=== PATIENT | male | born 1975 | race Caucasian/White ===

== ENCOUNTER → 2020-08-08 | Outpatient (CLI) | payer OTHER ==
[~2020-08-08] MED LIST: GADOTERATE 5 MMOL/10ML VIAL. INT ART ONE; IOHEXOL 300 MG/ML 50 ML VIAL. INT ART ONE; LIDOCAINE 1% Multi-Dose 20 ML VIAL. ID ONE
--- NOTE | 2020-08-08 16:12 | KCIC ---
Study: Fluoroscopically guided arthrogram of the left shoulder joint for MRI Indication: Left labral tear. Shoulder pain. Contrast: 0.1 cc Clariscan; 2 cc Omnipaque 300 Technique: A timeout was performed prior to beginning the procedure in order to confirm patient identity and lat erality of the injection. The risks, benefits and alternatives of the procedure were discussed. Utilizing sterile technique, fluoroscopic guidance and local anesthesia with 1% lidocaine, the left s houlder joint was accessed utilizing a 22-gauge, 3.5" spinal needle. Confirmation of needle position was obtained with a small amount of radiopaque contrast. Subsequently, approximately 12 cc of a mixtu re containing 15 cc saline, 5 cc lidocaine and 0.1 cc Clariscan was injected. There were no immediate post procedure complications. Fluoroscopy time: 24 seconds Number of images obtained: 1 Impression: Technically successful fluoroscopic guided arthrogram of the left shoulder joint without immediate po stprocedure complication. Electronically signed by: RAMIRO AGUILAR MD (08/08/2020 4:09 PM) [id number]
--- NOTE | 2020-08-08 16:24 | KCIC ---
STUDY: MRI arthrogram of the left shoulder INDICATION: Left shoulder pain. Labral tear. COMPARISON: None. TECHNIQUE: Multiplanar MR imaging of the left shoulder performed after the intra-articular injection of contrast material. The injection portion of the procedure is detailed in a separate report. FINDINGS: AC joint: No significant AC joint arthrosis. No gadolinium-containing fluid within the subacromial baker bdeltoid bursa. Rotator cuff: The rotator cuff is intact. Normal muscular bulk and signal. Labrum: SLAP-type tear extending from superior to approach the mid posterior aspect. Suspected nondis placed tear at the anterior/inferior labrum as well noting that the ABER sequence is degraded by grant on despite a repeat imaging attempt. Long head biceps tendon: Intact and normally located. Cartilage: Possible partial thickness chondrosis at the mid anterior to anterior/inferior glenoid, baker ch as seen on images 11 through 13 series 3. Bones: No focally aggressive marrow signal abnormality or fracture. Miscellaneous: A few loose bodies layering dependently within the posterior aspect of the joint. Mild shoulder joint synovitis. Impression: 1. Intact rotator cuff. Normal muscular bulk and signal. 2. SLAP-type tear extending from superior to approach the mid posterior aspect. There is also a suspe cted nondisplaced tear at the anterior/inferior labrum (image 14 series 3) but difficult to confirm o n the ABER sequence due to motion. 3. Several loose bodies within the glenohumeral joint space on a background of mild synovitis. These loose bodies could be related to chondral loss given apparent chondrosis along the mid anterior to an terior/inferior glenoid adjacent to the suspected labral tear. Electronically signed by: RAMIRO AGUILAR MD (08/08/2020 4:22 PM) [id number]
== END | disposition home or self-care (01) ==
LOC: KCIC 13:05
PROVIDERS: ATTEND Physician Assistant
DX: S43.402A Unspecified sprain of left shoulder joint, initial encounter (principal); M25.512 Pain in left shoulder; Z79.899 Other long term (current) drug therapy; X58.XXXA Exposure to other specified factors, initial encounter; Y93.89 Activity, other specified; Y92.89 Other specified places as the place of occurrence of the external cause; Y99.8 Other external cause status
CPT/HCPCS: 23350; 73222; 77002; A9575; J3490; Q9967; 73040

== ENCOUNTER → 2020-09-02 | Outpatient (CLI) | payer OTHER ==
[~2020-09-02] MED LIST changes: +DEXT10TA23 PO; -GADOTERATE 5 MMOL/10ML VIAL. INT ART ONE; -IOHEXOL 300 MG/ML 50 ML VIAL. INT ART ONE; -LIDOCAINE 1% Multi-Dose 20 ML VIAL. ID ONE; +LOSA25TA PO; +METO25TA4 PO; +OXYC1TAB19 PO; +SERT100T PO; +SIMV40TA18 PO
== END ==
LOC: LAB 08-31 11:31
PROVIDERS: ATTEND Orthopaedic Surgery
DX: Z01.812 Encounter for preprocedural laboratory examination (principal); S43.432A Superior glenoid labrum lesion of left shoulder, initial encounter; X58.XXXA Exposure to other specified factors, initial encounter; Y93.89 Activity, other specified; Y92.89 Other specified places as the place of occurrence of the external cause; Y99.8 Other external cause status; Z20.822 Contact with and (suspected) exposure to COVID-19
CPT/HCPCS: U0003

== ENCOUNTER 2020-09-06 09:54 | Day surgery (SDC) | payer OTHER ==
[~2020-09-06] VITALS: Ht 175.3 cm; Wt 98.4 kg
[~2020-09-06 09:54] MED LIST changes: +HYDROmorphone 2 MG/ML VIAL IVP PRN; +IV RINGERS,LACTATED 1000ML 1,000 ML IV SCH; +MORPHINE SULFATE 2 MG/ML VIAL. IVP PRN; -OXYC1TAB19 PO; +PROCHLORPERAZINE 10 MG/2 ML VIAL. IVP PRN; +fentaNYL PF VIAL 100 MCG/2 ML VIAL IVP PRN
[2020-09-06] MEDS ORDERED: SEVOFLURANE 61 TO 120 MINUTES. IH ONE (10:14)
[2020-09-06] MEDS ORDERED: PROPOFOL 50 ML IV ONE (10:14)
[2020-09-06] MEDS ORDERED: LIDOCAINE 2% PF 5 ML VIAL. ONE (10:14)
[2020-09-06] MEDS ORDERED: MIDAZOLAM HCL/PF 2 MG/2 ML VIAL. ONE ×2 (10:14→10:37)
[2020-09-06] MEDS ORDERED: GLYCOPYRROLATE 1 MG/5 ML VIAL. ONE ×2 (10:15→11:53)
[2020-09-06] MEDS ORDERED: BUPIVACAINE MPF 0.5% 30 ML VIAL. ONE (10:37)
[2020-09-06] MEDS ORDERED: LIDOCAINE 1% PF 5 ML VIAL. ONE (10:42)
[2020-09-06] MEDS ORDERED: EPINEPHrine VIAL 30 MG/30 ML VIAL ONE (11:23)
[2020-09-06] MEDS ORDERED: OXYC1TAB19 PO (12:44)
--- NOTE | 2020-09-06 12:47 | DISCH ---
DISCHARGE INSTRUCTIONS Condition on Discharge Condition on Discharge: Stable Activity After Discharge Activity Instructions for Disc: Other, see below (May start active range of motion and gentle rotator cuff strengthening right away with physical therapy) Lifting Instructions after Dis: No heavy lifting (Limit elbow flexion strength to 5 pounds for 1 month postoperatively) Diet after Discharge Diet after Discharge: Regular Wound Incision Care Wound/Incision Care: Change dressing (Remove dressing in 2 days may then shower no soaking until sutures removed) Community/Resources/Services Services at Discharge: PT EVALUATE & TREAT (Active range of motion and gentle strengthening permitted with 5 pound elbow flexion limit to protect biceps tenodesis) Follow-Up Follow up with: Dr. Cabrera 7 to 10 days MARIE CABRERA MD Sep 06, 2020 12:46
[2020-09-06] MEDS ORDERED: PHENYLEPHRINE in 0.9% NACL PF 1 MG/10 ML SYRINGE. IV ONE (12:53)
[2020-09-06 13:57] VITALS: BP 129/70
--- NOTE | 2020-09-06 15:01 | PDOC4 ---
Operative Note Operative Note Date of surgery: 09/06/2020 Preoperative diagnosis: Left shoulder SLAP tear Postoperative diagnosis: Type II SLAP tear, chondral flap tear of humeral head, chondral loose bodies, severe degenerative fraying of entire labrum and partial- thickness undersurface supraspinatus tear Operative procedure: Left shoulder biceps tenodesis and debridement of chondral flap tear humeral head entire labrum and undersurface supraspinatus tear and removal loose bodies Surgeon: Rick Ore Crushing Dust Collector: Allison Esteban waiter/waitress first class Anesthesia: General plus scalene block Estimated blood loss: 5 cc Complications: None Operative indications: Please see my orthopedic clinic note for detailed operative indications and note that I had covered with him the expected findings of a SLAP tear and the most likely outcome of biceps tenodesis, the plan to address other pathology as necessary in the shoulder and the risks benefits postoperative course including the possibility of infection nerve or blood vessel damage continued pain nonhealing medical or other anesthetic complications among others all his questions were answered he wishes to proceed with surgical evaluation and treatment. Operative text: Patient was identified procedure verified patient placed in the supine position on the operating table. After adequate amounts of general anesthesia plus a pre-existing scalene block were obtained he was placed decubitus position left side up with the beanbag and all bony prominences were well-padded. Left shoulder was examined under anesthesia found to have full range of motion and no instability. The left shoulder was then prepped and draped in standard sterile fashion and placed in the arthroscopic arm reyes with a total of 10 pounds of traction. After timeout was performed patient procedure identified and verified a standard posterior portal was established an anterior portal established using spinal needle localization and the shoulder joint was systematically examined. Glenohumeral joint cartilage was noted to be compromised by a chondral flap tear that was partial-thickness in the central aspect of the humeral head which was debrided back to stable tissue. He had several chondral loose bodies that were retrieved through the enlarged anterior portal. He did have a type II SLAP tear along with significant labral fraying throughout its periphery and a partial thickness undersurface tear of the supraspinatus. Biceps was tagged then tenotomized and labrum was debrided back to stable tissue using the arthroscopic bipolar electrocautery the undersurface partial-thickness tear of the supraspinatus was debrided back to stable tissue and noted to have about 20% involvement of the rotator cuff thickness overall and the remainder of the footprint insertion as well as bare area of the humerus were noted to be normal in appearance. He did have some synovitis over the posterior labrum which was likewise debrided back to stable tissue with shaver and bipolar electrocautery. Capsule ligamentous structures were otherwise noted to be normal in appearance. Subacromial space was then entered the bicipital groove was located unroofed in the biceps tendon retrieved through an anterior portal and was whipstitched and tenodesed after sizing the tendon to a size 8 mm and drilling a 8 mm blind ended hole and a Quatro bolt tenodesis screw 9 mm x 12 mm peek implant was used to tension the tendon and restore biceps contour and provided excellent fixation. Shoulder joint was drained of arthroscopic fluid portals closed with buried Vicryl and skin closure with nylon suture sterile dressings were applied he was placed in a sling returned to recovery room in stable condition having tolerated procedure well. Allison chun was present for the procedure and assisted in patient positioning prepping draping retraction closure and dressings MARIE TIAN MD Sep 06, 2020 15:01
== END 2020-09-06 14:27 | disposition home or self-care (01) ==
LOC: SURG 09:54
PROVIDERS: ATTEND Orthopaedic Surgery
DX: S43.432A Superior glenoid labrum lesion of left shoulder, initial encounter (principal); I10 Essential (primary) hypertension; G47.30 Sleep apnea, unspecified; Z87.891 Personal history of nicotine dependence; Z72.89 Other problems related to lifestyle; Z79.899 Other long term (current) drug therapy; Z98.890 Other specified postprocedural states; X58.XXXA Exposure to other specified factors, initial encounter; Y93.89 Activity, other specified; Y92.89 Other specified places as the place of occurrence of the external cause; Y99.8 Other external cause status
CPT/HCPCS: 29823; 29828; A4565; A4930; C1713; J0171; J0690; J2250; J2370; J2704; J3490